=== PATIENT | female | born 2000 ===

== ENCOUNTER 2025-03-20 20:46 | Emergency (ER) | payer OTHER, SELFPAY ==
[2025-03-20 20:49] VITALS: BP 124/78; PULSE 89; RESP 20; TEMP 36.6; O2SAT 98
--- NOTE | 2025-03-20 20:58 | W.ED.GENAD ---
Discharge Plan Disposition Patient Disposition: Home Condition: Stable Discharge Details Clinical Impression: Rectal bleeding ED Provider: Jhonatan Glass Home Meds and New Rx's Prescriptions: New metronidazole 500 mg tablet 500 mg PO Q8H Qty: 21 0RF ciprofloxacin HCl 500 mg tablet 500 mg PO BID Qty: 14 0RF Discharge Instructions Additional Instructions: You have no hemorrhoid or other abnormalities noted on exam today. If your symptoms are continuing this week follow-up with your primary care provider. If you feel more ill or have new symptoms such as high fevers, severe abdominal pain or difficulty breathing return to emergency department for reevaluation. HPI General Mode of arrival: ambulatory. Date/Time Provider Initiated Documentation: 03/20/25 20:48. Limitations to Documentation: no limitations. Information obtained by: patient. History of Present Illness 24 year old F presents to the emergency department with the chief complaint of rectal bleeding/discharge, described as moderate, Patient started experiencing this day(s) (1) and it has been intermittent. No relieving factors improve symptom(s), No exacerbating factors reported . Patient notes denies chest pain and fever/chills. Patient did receive the following treatments prior to arrival, none Related Data Home Medications ?Medication ?Instructions ?Recorded ?Confirmed ciprofloxacin HCl 500 mg tablet 500 mg PO BID #14 tabs 03/20/25 metronidazole 500 mg tablet 500 mg PO Q8H #21 tabs 03/20/25 Previous Rx's ?Medication ?Instructions ?Recorded ciprofloxacin HCl 500 mg tablet 500 mg PO BID #14 tabs 03/20/25 metronidazole 500 mg tablet 500 mg PO Q8H #21 tabs 03/20/25 Allergies Allergy/AdvReac Type Severity Reaction Status Date / Time No Known Allergies Allergy Unverified 03/20/25 20:54 General Stated Complaint: GI Bleed JOSE ENRIQUE: 4 Review of Systems All systems reviewed & are unremarkable except as noted in HPI and below Constitutional Constitutional: Denies chills, Denies fever(s) and Denies weakness Respiratory Respiratory: Denies cough Gastrointestinal Gastrointestinal: Denies abdominal pain, Denies nausea and Denies vomiting Neurologic Neurologic: Denies weakness Exam Const General: no acute distress Orientation: alert HENMT Head: normal to inspection Ears: external ears normal General nose exam: external nose normal Mouth: moist mucous membranes Eyes General: appearance normal, both eyes and all related structures Neck Neck: normal visual inspection Resp Effort & Inspection: normal respiratory effort and able to speak in complete sentences Cardio Rate: regular rate GI Palpation: soft and nontender Skin General skin exam: no rashes or lesions noted Neuro General: patient alert and patient oriented x3 Extrem General: normal to inspection Psych Mental Status: mental status grossly normal Course Vital Signs Vital signs: Vital Signs Temperature 36.6 C 03/20/25 20:49 Pulse 89 03/20/25 20:49 Respiratory Rate 20 03/20/25 20:49 Blood Pressure 124/78 03/20/25 20:49 Pulse Oximetry 98 03/20/25 20:49 Temperature 36.6 C 03/20/25 20:49 Temperature Source Oral 03/20/25 20:49 Pulse 89 03/20/25 20:49 Respiratory Rate 20 03/20/25 20:49 Blood Pressure 124/78 03/20/25 20:49 Blood Pressure Position Sitting 03/20/25 20:49 Pulse Oximetry 98 03/20/25 20:49 Oxygen Delivery Method Room Air 03/20/25 20:49 Oxygen Flow Rate 0 03/20/25 20:49 Pain Level 2 03/20/25 20:56 Medical Decision Making 24-year-old female comes in with 1 d she is well-appearing on exam. She has no abdominal tenderness. She has noted her stools been loose for the last few days. No recent travel. Ay of intermittent blood with bowel movements. States that she also feels like there might be some yellowish material. Denies any fevers or abdominal pain. She denies any vaginal bleeding or discharge. I performed a rectal exam with Megan Cohen at bedside and she has no abnormalities on the outside rectum, no hemorrhoids or fluctuance to suggest abscess. Has normal rectal tone on internal exam and has no palpable deformities or abnormalities noted. No bleeding on my glove when I removed the finger. Unclear etiology of her symptoms. I recommended labs and a CT but patient would like to defer this at this time given the symptoms started today feel this is reasonable as my suspicion for intra-abdominal abscess is low. I will start her on antibiotics for the reported purulent diarrhea. She will follow-up with her PCP if not improving and return precautions given. PFSH All Active Problems (Updated 03/20/25 @ 21:10 by Jhonatan Glass MD) Rectal bleeding (Acute) Social History Smoking/Tobacco Use Status: Never Smoking risk assessment performed?: Yes Drug use: Never Housing: house Do you feel safe at home: Yes Do you feel safe in your relationship?: Yes
[2025-03-20] MEDS: metroNIDAZOLE 500 MG TAB PO (21:33)
[2025-03-20] MEDS: Ciprofloxacin 500 MG TAB PO (21:33)
== END 2025-03-20 21:42 | disposition home or self-care (01) ==
LOC: ER 21:50
PROVIDERS: Emergency Provider Emergency Medicine
DX: K92.1 Melena; R19.7 Diarrhea, unspecified
CPT/HCPCS: 99283; 81025; 99284